=== PATIENT | female | born 1965 | race Caucasian/White ===

== ENCOUNTER 2020-01-23 13:06 | Emergency (ER) | payer OTHER ==
[~2020-01-23] VITALS: Ht 162.6 cm; Wt 108.9 kg
[2020-01-23] MEDS ORDERED: PROMETH-CODEIN 65 ML PO (15:02)
[2020-01-23 15:27] VITALS: BP 161/82
--- NOTE | 2020-01-24 08:18 | EKG ---
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
== END 2020-01-23 15:28 | disposition home or self-care (01) ==
LOC: ER 13:06
DX: U07.1 COVID-19 (principal); R05 Cough; R50.9 Fever, unspecified; I10 Essential (primary) hypertension

== ENCOUNTER → 2020-03-07 | Outpatient (CLI) | payer OTHER ==
[~2020-03-07] MED LIST: PROMETH-CODEIN 65 ML PO
== END ==
LOC: LAB 19:39
PROVIDERS: ATTEND Hospitalist
DX: U07.1 COVID-19 (principal)

== ENCOUNTER 2020-05-20 10:28 | Emergency (ER) | payer OTHER ==
[~2020-05-20] VITALS: Ht 162.6 cm; Wt 99.8 kg
[2020-05-20] MEDS ORDERED: BACTRIM DS TAB1 EAC1 PO (10:55)
[2020-05-20 11:30] LABS: HEMATOCRIT 41.7 % (37.0-47.0); HEMOGLOBIN 14.2 gm/dL (12.0-15.0); MCHC 33.9 g/dL (28.0-37.0); MCV 91.5 fL (80.0-100.0); RBC 4.56 mil/uL (4.20-5.00); WBC 8.2 thou/uL (4.0-11.0)
[2020-05-20 11:39] LABS: CALCIUM 9.4 mg/dL (8.5-10.1); POTASSIUM 3.4 mmol/L (3.5-5.1)
[2020-05-20] MEDS ORDERED: NORCO 5-325 TA1 EAC2 PO (12:29)
[2020-05-20] MEDS ORDERED: NAPROSYN500 MG PO (12:29)
[2020-05-20] MEDS ORDERED: DOXYCYCLINE 10100 MG PO (12:29)
[2020-05-20] MEDS ORDERED: KEFLEX500 M1 PO (12:29)
[2020-05-20 12:30] VITALS: BP 160/78
== END 2020-05-20 12:57 | disposition home or self-care (01) ==
LOC: ER 10:28
PROVIDERS: Physician Assistant
DX: L02.413 Cutaneous abscess of right upper limb (principal); L03.113 Cellulitis of right upper limb; I10 Essential (primary) hypertension; Z79.2 Long term (current) use of antibiotics